=== PATIENT | female | born 1965 | race Caucasian/White ===

== ENCOUNTER 2021-02-03 11:19 | Outpatient (CLI) | payer OTHER ==
--- NOTE | 2021-02-11 06:03 | Mammography Report ---
BILATERAL DIGITAL SCREENING MAMMOGRAM 3D/2D: 02/03/2021 CLINICAL: Routine screening. Additional films were requested but not obtained. There are scattered fibroglandular elements in bot h breasts. No significant masses, calcifications, or other findings are seen in either breast. IMPRESSION: NEGATIVE There is no mammographic evidence of malignancy. A 1 year screening mammogram is recommended. This exam was interpreted at Station ID: [id number]. NOTE: For mammograms, a report in lay terms will be sent to the patient. Approximately 15% of breast malignancies will not be visualized mammographically. In the management of a palpable breast mass, a negative mammogram must not discourage biopsy of a clinically suspicious lesion. Electronically Signed By: Carlos [email or web address]:02/10/2021 08:27:49 ACR BI-RADS Category 1: Negative 3341F PARENCHYMAL PATTERN: (A) - The breast(s) demonstrate(s) scattered fibroglandular densities. BI-RADS CATEGORY: (1) - 1 RECOMMENDATION: (ANNUAL) - Recommend routine annual screening mammography. [id number] 1 year screening LATERALITY: (B)
== END 2021-02-03 11:20 | disposition home or self-care (01) ==
LOC: DI.N 11:19
PROVIDERS: ATTEND Nurse Practitioner
DX: Z12.31 Encounter for screening mammogram for malignant neoplasm of breast (principal)

== ENCOUNTER 2021-10-30 10:40 | Outpatient (CLI) | payer MEDICARE, OTHER ==
[2021-10-30] MEDS ORDERED: ALBUTEROL 1 PUFF INH STA (14:59)
== END 2021-10-30 10:41 | disposition home or self-care (01) ==
LOC: RT 10:40
PROVIDERS: ATTEND Physician Assistant
DX: R06.09 Other forms of dyspnea (principal)
CPT/HCPCS: 94060

== ENCOUNTER 2021-11-14 12:28 | Outpatient (CLI) | payer MEDICARE, OTHER ==
[2021-11-14 13:34] VITALS: BP 128/73
--- NOTE | 2021-11-14 13:34 | SLEEP CARE CONSULTATION ---
Information from patient questionnaire entered by Hannah Pride MA. I have reviewed and concur with the information entered by Hannah Pride MA. This document represents the service I personally performed and the decisions made by me, Vernell Quan ARNP. History of Present Illness Service Date and Time: 11/14/2021 1228 Reason for Visit: New patient (ONSET 07/2021, ) Chief Complaint: reports: Unrefreshed sleep, Snoring, Fatigue Date of Onset: All my life Usual bedtime: 10-11 PM Time it takes to fall asleep: 5-30 minutes Snores at night: Yes Observed to quit breathing while asleep: No Sleeps alone due to snoring: Yes Number of times waking at night: 0-2 Reasons for waking at night: reports: Snoring, Other (just to look around or the neighbors lights) Toss, Turn, or Twitch while sleeping: No Recalls having dreams: Yes Usually gets out of bed at: 2399-2913 Feels refreshed in the morning: No Morning headache: Yes (resolves after morning coffee; 1 time a week or less) Sleepy or fatigued during the day: Yes Ever fallen asleep while driving: No (no drowsy driving; doesn't drive at night) Takes day naps: Yes (2-3 times a week for 1-2 hours) Dreams during day naps: No Prior sleep studies: No Additional HPI information: I had the pleasure of seeing SARAH RODRIGUEZ today regarding the possibility of her having a sleep disorder. Her current complains of snoring. She states her tells her she snores loudly. She will sleep in another room because of her snoring to not bother her . She states she will wake up with a very dry mouth during the night. She states she does not feel rested in the mornings. She will be tired during the day and takes naps about 3 times a week for a couple hours. - Parasomnia Symptoms Ever been unable to move upon waking from sleep: No Walks in sleep: No Talks in sleep: No Ever acted out dreams in sleep: No Ever felt weak in the knees when startled or emotional: No Bothered by creepy, crawly, restless sensations in legs: No Problems with memory or concentration: Yes (memory more) Subjective Initial [place] Sleepiness Scale score: 5 (in 2021) Past Medical History Past Medical History: reports: Hypertension, Anxiety, Depression, Other (high cholesterol ) Social History The patient's occupation is a [employer]. Patient is and lives in [place]. Have you smoked in the past 12 months: No Cigarettes per day (20/pack): 20 Years of smokin Quit date: 34 years ago Smoking Pack Years: 8.0 Alcohol use: No Caffeine use: Yes Caffeine amount and frequency: 1 cup daily Family History Family history of sleep disordered breathing: No (don't know) Allergies and Home Medications Drug allergies reviewed: Yes () Home medication list reviewed: Yes Allergy and home medication list: Medications: Bupropion Seroquel Lisinopril Pravastatin Vitamin D Acyclovir, for 2 more days Review of Systems Cardiovascular: reports: high blood pressure Respiratory: reports: shortness of breath Neurological: reports: headaches. denies: head trauma Psychiatric: reports: anxiety, depression Ear/Nose/Throat: reports: nasal congestion (stuffy nose), dry mouth/throat, wisdom teeth removed. denies: injury to nose, tonsillectomy Endocrine: reports: sluggishness Immunologic: reports: allergies to food or environment (seasonal, pollen) Physical Exam Vital signs obtained and entered by: Silvestre ACHARYA Blood Pressure: 128/73 (RIGHT, PULSE 87, RESP 18) Cuff size: wrist Heart Rate: 86 O2 Saturation: 98 (CLOTH MASK) Height: 5 ft 5.5 in Weight: 217 lb Body Mass Index: 35.5 BMI Classification: Obese Neck circumference: 16 (inches) Mouth and throat: narrow oropharynx Soft palate: long Hard palate: normal Uvula: normal Uvula visualization: 25% Mallampati Class III Tongue: enlarged in size with teeth hardy on lateral edges Tonsils: 2+ Neck: normal w/o lymphadenopathy or thyromegaly Heart: regular rate and rhythm Lungs: clear bilaterally Impression and Plan 1. Suspected Obstructive Sleep Apnea-Hypopnea Syndrome, as suggested by a history of loud and irregular snoring, morning headache, unrefreshed sleep, cognitive impairment, and excessive daytime sleepiness. Narrow oropharynx and obesity are common predisposing factors for obstructive sleep apnea-hypopnea syndrome. I recommend proceeding to polysomnography to confirm the diagnosis and to assess severity. If the patient has significant sleep disordered breathing, a manual CPAP titration study will also be performed to find the optimal treatment pressure. I informed the patient of what the sleep studies involve and after some discussion, obtained agreement to proceed. The pathophysiology of obstructive sleep apnea-hypopnea syndrome was discussed with the patient and health risks of cardiovascular and cerebrovascular disease if not treated. Risks of drowsy driving discussed in detail and patient advised to avoid long distance driving and to line puller at the first sign of drowsiness. Patient agreed to plan. * Schedule polysomnography * Avoid long distance driving or driving when feeling sleepy. * Avoid alcohol, sedative and muscle relaxant around bedtime. * Attempt to lose weight. * Review instructions provided by trained office staff on how to prepare for the sleep study. * Return for follow-up after sleep study completed. Counseling Topics: Weight loss health impact Visit Type: In Office Time Spent with Patient (minutes): 31 Provider Statement: I spent 100% of the Face to Face Visit with the patient with greater than 50% spent counseling the patient and coordination of care.
== END 2021-11-14 12:29 | disposition home or self-care (01) ==
LOC: SC 12:28
PROVIDERS: ATTEND Nurse Practitioner Family
DX: G47.10 Hypersomnia, unspecified (principal); R53.83 Other fatigue; R06.83 Snoring; G47.8 Other sleep disorders; I10 Essential (primary) hypertension; F32.A Depression, unspecified; Z87.891 Personal history of nicotine dependence; E66.9 Obesity, unspecified; Z68.35 Body mass index [BMI] 35.0-35.9, adult
CPT/HCPCS: 99203; G0463; 99212

== ENCOUNTER 2021-11-30 21:33 | Outpatient (CLI) | payer MEDICARE, OTHER | END 2021-11-30 21:34 | disposition home or self-care (01) | LOC: SC 21:33 | PROVIDERS: ATTEND Nurse Practitioner Family | DX: R06.83 Snoring (principal); R51.9 Headache, unspecified; G47.10 Hypersomnia, unspecified; R41.89 Other symptoms and signs involving cognitive functions and awareness; E66.9 Obesity, unspecified; Z68.35 Body mass index [BMI] 35.0-35.9, adult | CPT/HCPCS: 95810 ==

== ENCOUNTER 2021-12-31 12:58 | Outpatient (CLI) | payer MEDICARE, OTHER ==
[2021-12-31 13:51] VITALS: BP 126/75
--- NOTE | 2021-12-31 13:51 | SLEEP CARE CONSULTATION ---
Information from patient questionnaire entered by Hannah Pride MA. I have reviewed and concur with the information entered by Hannah Pride MA. This document represents the service I personally performed and the decisions made by , Vernell Quan ARNP. History of Present Illness Service Date and Time: 12/31/2021 1258 Accompanied by: Spouse Initial [place] Sleepiness Scale score: 5 (in 2021) Current [place] Sleepiness Scale score: 2 (12/31/21) Additional HPI information: SARAH RODRIGUEZ returns for follow up and results of the recently performed polysomnography. The patient was informed of the following findings: No significant sleep disordered breathing with an average AHI of 3.7 and geronimo oxygen saturation of 89%. I explained the pathophysiology behind obstructive sleep apnea. Patient does not have sleep apnea and was advised how weight gain could increase the risk of developing sleep apnea in the future. I strongly encouraged the patient to lose weight. Patient has moderate to loud snoring. Snoring can be reduced by weight loss. Weight loss is best achieved with diet consult. Patient instructed to contact PCP for referral. Snoring can also be treated with an oral appliance from a d entist. Advised to check insurance coverage. In addition, an ENT evaluation can be do to see if other treatment is indicated. Patient was cautioned about risks of drowsy driving until sleepiness symptoms resolve. Sleep Study - Results Type of Sleep Study: Polysomnography (F/U POLY, 11/30/2021, NEG,) Prior sleep studies: No Polysomnography/Home Sleep Study results: IMPRESSION: The quality of the study is good. The patient had reduced sleep efficiency due to a prolonged awakening in the middle of the night. Except for mild sleep fragmentation, the sleep architecture was relatively normal considering the first-night effect. Respiratory monitoring showed no significant sleep disordered breathing (AHI = 3.7) or hypoxia ([place]on[place] oxygen saturation of 89%). The respiratory events occurred mainly during REM sleep (supine AHI = 3.0; non-supine = 4.71). Snore was moderate to loud in intensity. There was no significant periodic leg movement of sleep. Cardiac rhythm was normal sinus rhythm without significant arrhythmia. No abnormal behavior (parasomnia) observed during the night. Allergies and Home Medications Known drug allergies: Yes (SULFA, SEPTRA) Drug allergies reviewed: Yes Home medication list reviewed: Yes (no changes) Review of Systems Review of systems same as previous: No (Peridontal disease, has to have deep cleaning x 4) Physical Exam Vital signs obtained and entered by: KAMI LIVINGSTON Blood Pressure: 126/75 (RESP 18, PULSE 82, RIGHT) Heart Rate: 84 O2 Saturation: 98 Height: 5 ft 5.5 in Weight: 207 lb 8 oz (CLOTHES) Weight change since last visit: LOST WEIGHT, 30LBS, HAD SORE IN THE MOUTH, Body Mass Index: 34.0 BMI Classification: Obese Impression and Plan Snoring but no significant sleep disordered breathing. Patient advised that often weight loss will reduce snoring as well as apnea risk. An oral appliance can also be used for snoring. This would require a dental consultation. Patient cautioned not to use other online appliances as can cause bite issues. A list of accredited dentists in [facility] and one local dentist who makes oral appliances is available in office. Patient is advised to check if insurance will cover. An ENT consult can also be helpful to determine if any other treatment is an option. * Continue to try to lose weight * Avoid alcohol consumption near bedtime * The patient is cautioned about driving until sleepiness is completely resolved. * Return as needed for follow up. Counseling Topics: Weight loss health impact Visit Type: In Office Other Participants: Spouse/Significant Other Time Spent with Patient (minutes): 12 Provider Statement: I spent 100% of the Face to Face Visit with the patient with greater than 50% spent counseling the patient and coordination of care.
== END 2021-12-31 12:59 | disposition home or self-care (01) ==
LOC: SC 12:58
PROVIDERS: ATTEND Nurse Practitioner Family
DX: R06.83 Snoring (principal); E66.9 Obesity, unspecified; Z68.34 Body mass index [BMI] 34.0-34.9, adult
CPT/HCPCS: 99212; G0463